=== PATIENT | female | born 1965 | race Caucasian/White ===

== ENCOUNTER → 2017-05-04 | Day surgery (SDC) | payer OTHER ==
[2017-05-03 15:24] VITALS: Ht 157.5 cm; Wt 67.0 kg
[~2017-05-04] VITALS: Ht 157.5 cm; Wt 67.0 kg
[~2017-05-04] MED LIST: CEFAZOLIN 2 GM/50 ML (PMX) 50 ML IVPB ONE; SOD CHLORIDE 0.9% 1,000 ML IV SCH
== END | disposition home or self-care (01) ==
LOC: SDS 07:09
PROVIDERS: ATTEND Surgery Surgical Oncology
DX: C50.912 Malignant neoplasm of unspecified site of left female breast (principal); Z53.9 Procedure and treatment not carried out, unspecified reason

== ENCOUNTER 2017-06-13 09:30 | Inpatient (IN) | payer OTHER ==
[2017-06-13] VITALS (25 sets, daily range): BP systolic 105–135; BP diastolic 67–96; PULSE 92–111; RESP 12–19; Ht 157.5 cm; Wt 67.6 kg
[~2017-06-13] VITALS: Ht 157.5 cm; Wt 67.6 kg
[~2017-06-13 09:30] MED LIST changes: -CEFAZOLIN 2 GM/50 ML (PMX) 50 ML IVPB ONE; +CEFAZOLIN 2 GM/50 ML (PMX) 50 ML IVPB SCH
[2017-06-13] MEDS ORDERED: DILT180C94 PO (10:25)
[2017-06-13] MEDS ORDERED: ALBU18HF INHALATION (10:26)
[2017-06-13] MEDS ORDERED: OMEP20CA16 PO (10:26)
[2017-06-13] MEDS ORDERED: CETI-240 PO (10:26)
[2017-06-13] MEDS ORDERED: FLUT16SP17 NASAL (10:27)
--- NOTE | 2017-06-13 13:44 | HPN ---
Date/Time of Note Date/Time of Note DATE: 06/13/17 TIME: 13:44 Interval H&P Admission Note Pt. seen H&P reviewed: No system changes ANDREINA REGAN MD Jun 13, 2017 13:44
[2017-06-13] MEDS ORDERED: ROCURONIUM 50 MG INJ ONE (13:46)
[2017-06-13] MEDS ORDERED: HYDROmorphONE 2 MG/ML SYG ONE (13:46)
[2017-06-13] MEDS ORDERED: PROPOFOL 20 ML ONE ×2 (13:46→14:44)
[2017-06-13] MEDS ORDERED: MIDAZOLAM 1 MG/ML 2 ML INJ ONE (13:46)
[2017-06-13] MEDS ORDERED: DEXAMETHASONE 4 MG/ML 1 ML INJ ONE (13:46)
[2017-06-13] MEDS ORDERED: ONDANSETRON 4 MG INJ ONE (13:46)
[2017-06-13] MEDS ORDERED: CEFAZOLIN 1 GM INJ ONE (13:57)
[2017-06-13] MEDS ORDERED: BUPIVACAINE LIPOSOME/PF 266 MG/20 ML VIAL INFIL ONE (14:00)
[2017-06-13] MEDS: CEFAZOLIN 2 GM/50 ML (PMX) 50 ML IVPB SCH ×2 (14:00→23:08)
[2017-06-13] MEDS ORDERED: BUPIVACAINE LIPOSOME/PF 266 MG/20 ML VIAL INFIL SCH (14:00)
[2017-06-13] MEDS ORDERED: GENTAMICIN 80 MG INJ ONE ×2 (14:42→17:05)
[2017-06-13] MEDS ORDERED: SODIUM CL BACTERIOSTATIC 30 ML INJ ONE (14:42)
[2017-06-13] MEDS ORDERED: POLYMYXIN/BACITRACIN 1L IRRIG ONE ×2 (14:42→17:04)
[2017-06-13] MEDS ORDERED: METOPROLOL 5 MG INJ ONE (14:44)
[2017-06-13] MEDS ORDERED: HYDROCODONE/APAP (10/325) TAB PO PRN (15:00)
[2017-06-13] MEDS ORDERED: CEFOTAXIME 1 GM/50 ML (PMX) 50 ML IVPB SCH (15:00)
[2017-06-13] MEDS ORDERED: ACETAMINOPHEN 325 MG TAB PO PRN (15:00)
[2017-06-13] MEDS ORDERED: HYDROmorphONE 1 MG/ML SYG IV PRN (15:00)
--- NOTE | 2017-06-13 15:09 | OPR ---
Date/Time of Note Date/Time of Note DATE: 06/13/17 TIME: 15:08 Operative Report Free Text/Dictation Plastic Surgery Operative Report Preoperative diagnosis: left breast DCIS Postoperative diagnosis: same Procedure: bilateral direct to implant reconstruction with alloderm Surgeon: ash Delacruz.:n/a Anesthesia: gen EBL:min IV fluids:per flow sheet Findings: n/a Complications: none Dispo:floor Indications for procedure : 52 yo F patient presents for direct to implant bilateral breast reconstruction. She currently has breast implants. The risks, benefits, and alternatives of performing this procedure were discussed with the patient including the risks of bleeding, infection, wound healing problems, extrusion, pain and tightness, need for removal. We discussed that if radiation is involved, it may alter the outcome. The risk of asymmetry and need for revision surgery were also discussed. The patient states that she understands these risks and would like to proceed with the procedure. All questions were answered, no guarantees were given with regards the outcome of this procedure. Description of procedure: The patient was brought to the operating room at [facility] where general anesthesia was induced, and the patient was prepped and draped in the usual sterile fashion. The bilateral mastectomy was performed by Dr. Mcelroy and will be dictated separately. The breast implants were in the subglandular plane and were removed during the mastectomy. They were 507 cc. At the completion of that portion of the case, I scrubbed into the case, and irrigated the breasts with extensive antibiotic irrigation to remove all loose fat particles. Next, meticulous hemostasis was achieved with the bipolar cautery. An additional round of irrigation and hemostasis was carried out. Next, the right breast was inspected, and a piece of AlloDerm, contour large was opened, rinsed in normal saline, it was anchored in place medially, inferiorly, and laterally to re-create the border of the breasts. This was anchored with 2-0 Vicryl suture. The electrocautery was then used to elevate the pectoralis muscle and created a pocket in the subpectoral plane. Once this was completed, the breast was irrigated antibiotic irrigation, hemostasis was achieved with electrocautery, and then a 5 6 0 cc sizer was opened, rinsed in antibiotic irrigation, and was inserted into the breast. This gave the desired appearance of the breast which was to be smaller, but still full and projecting. The lateral border of the AlloDerm was tacked to the pectoralis muscle laterally. The sizer was then removed. Attention was then turned to the contralateral side where a similar procedure was carried out. A piece of AlloDerm contour large was opened, rinsed in normal saline, it was anchored in place medially, inferiorly, and laterally to re-create the border of the breast. This was anchored with 2-0 Vicryl suture. The electrocautery was then used to elevate the pectoralis muscle and created a pocket in the subpectoral plane. Once this was completed, the breast was irrigated antibiotic irrigation, hemostasis was achieved with electrocautery, and then a 560 cc sizer was inserted into the breast. The breast was symmetric to the contralateral side. The AlloDerm was tacked to the lateral pectoralis muscle. The sizer was then removed. The breasts were irrigated with antibiotic irrigation, hemostasis was achieved with electrocautery, 60 cc of a diluted Exparel solution were injected into the breasts, and then gloves were changed. An DeliveryEdge SCF style 5 6 0 cc implant serial #[id number] was opened, rinsed in antibiotic irrigation, and was inserted into the left breast with minimal touch technique. The superior border of the AlloDerm was then sutured to the pectoralis muscle with 2-0 Vicryl suture. The same size and style implant serial #[id number] was opened, rinsed in antibiotic irrigation, and was inserted into the right breast with minimal touch technique. The superior border of the AlloDerm was then sutured to the pectoralis muscle with 2-0 Vicryl suture. The breasts were towel clipped closed, and the patient was sat up on the operating room table. The breasts were symmetric and had achieve the desired appearance. Therefore, the patient was sat back down, the towel clips were removed, hemostasis was achieved with electrocautery, the breasts are irrigated with antibiotic irrigation once again, and then to 15 Anastacio drains were inserted through stab incisions laterally into each breast and were secured with 2-0 nylon suture. Finally, the breasts were closed with 3-0 Vicryl suture and then 4-0 Monocryl suture. The patient tolerated procedure well, there were no complications, she will remain overnight ANDREINA REGAN MD Jun 13, 2017 15:09 ANDREINA REGAN MD Jun 13, 2017 15:09
[2017-06-13] MEDS ORDERED: EPHEDrine SULFATE 50 MG/5 ML SYG ONE (15:54)
[2017-06-13] MEDS ORDERED: NEOSTIGMINE 3 MG/3 ML SYRINGE ONE (17:19)
[2017-06-13] MEDS ORDERED: GLYCOPYRROLATE 0.4 MG INJ ONE (17:19)
[2017-06-13] MEDS ORDERED: DIPHENHYDRAMINE 50 MG INJ IV PRN (17:30)
[2017-06-13] MEDS ORDERED: LABETALOL HCL 20MG INJ IV PRN (17:30)
[2017-06-13] MEDS ORDERED: HYDROmorphONE (0.2 MG/ML) 10ML SYG IV PRN ×2 (17:30)
[2017-06-13] MEDS ORDERED: MEPERIDINE 25 MG INJ IV PRN (17:30)
[2017-06-13] MEDS ORDERED: ONDANSETRON 4 MG INJ IV PRN (17:30)
[2017-06-13] MEDS ORDERED: hydrALAzine 20 MG INJ IV PRN (17:30)
[2017-06-13] MEDS: ONDANSETRON 4 MG INJ IV PRN ×2 (18:57→21:45)
[2017-06-13] MEDS: HYDROmorphONE (0.2 MG/ML) 10ML SYG IV PRN ×2 (18:59→19:25)
--- NOTE | 2017-06-13 19:04 | OPR ---
DATE OF OPERATION: 06/13/2017 PREOPERATIVE DIAGNOSES: Ductal carcinoma in situ, left breast. Need for left mastectomy and immediate reconstruction, and elective right mastectomy and immediate reconstruction. ANESTHESIA: General. ANESTHESIOLOGIST: Dr. Boyd. SURGEONS: Dr. Ayad Mcelroy and Dr. Samuel Gorman. EXHIBITIONS AND COLLECTIONS MANAGER: Dr. Morgan Garza. INDICATIONS FOR PROCEDURE: Patient is a 52-year-old female, who underwent surveillance mammography. She was found to have suspicious microcalcifications in the left breast. Core biopsy confirmed ductal carcinoma in situ. The patient requested a referral to a plastic surgeon and she did not wish to undergo radiation and wanted to have her previously placed implants replaced. She was referred to attending plastic surgeon, Dr. Samuel Gorman who counseled as to the benefit of bilateral mastectomy with immediate reconstruction. She consented and was scheduled for surgery. POSTOPERATIVE DIAGNOSES: 1. Left modified radical mastectomy with axillary sampling. 2. Right simple mastectomy. 3. 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 OPERATIVE PROCEDURE: The patient was brought to the operating theater, placed under general anesthesia. The previously demarcated elliptical incision on the left breast was incised with 15 blade scalpel. Subcutaneous tissue was dissected with cautery. The skin edges were then elevated with [place] clamps and skin flaps were created sequentially using cautery, first superiorly to the clavicle, then medially to the sternal border, inferiorly to the inframammary fold and laterally to latissimus dorsi muscle was identified throughout its course. Mastectomy then took place from medial to lateral using cautery. At the border of the pectoralis major muscle the pectoralis minor muscle was identified. The implant was found to be subglandular and therefore it was removed as the mastectomy took place. There was 2 somewhat enlarged lymph nodes in the left axilla. Due to the possibility of invasive component of the cancer these lymph nodes were resected, 1 of them was evaluated intraoperatively by attending pathologist, Dr. Nik Brock who stated there was no definite evidence of cancer. Therefore, no further lymph nodes were taken. Specimen was transected, sent for permanent pathologic analysis. The wound was irrigated. Minimal bleeding was controlled with cautery and the wound was then packed with warm saline-soaked gauze. Attention was then directed to the right side. Again the previously demarcated elliptical incision was carried out with 15 blade scalpel. Subcutaneous tissue was dissected with cautery. The skin edges were elevated with [place] clamps. Skin flaps were created with cautery in sequential fashion. First superiorly to the clavicle, then medially to the sternal border, inferiorly to the inframammary fold and laterally to latissimus dorsi muscle was identified throughout its course. Mastectomy then took place from medial lateral using cautery at the border of the pectoralis major muscle. The pectoralis minor muscle was identified. The tail of the axilla was then transected with the LigaSure device. The breast and the enclosed implant was then sent for permanent pathologic analysis. The wound was irrigated. Minimal bleeding was controlled with cautery and the wound was packed with warm saline soaked lap pads. At this point, Dr. Samuel Gorman entered the room and took over control of the operation, proceeded with bilateral implant reconstruction. He will dictate that portion of the operation separately. ESTIMATED BLOOD LOSS: For Dr. Mcelroy' portion of the operation was approximately 200 cc. Dictated By: Ayda Mcelroy MD /lamin/nimo /Document#: [id number]
[2017-06-13] MEDS: LACTATED RINGER'S 1,000 ML IV SCH (19:35)
[2017-06-14] MEDS: LACTATED RINGER'S 1,000 ML IV SCH ×3 (00:50→10:50)
[2017-06-14] MEDS: ONDANSETRON 4 MG INJ IV PRN ×3 (03:28→22:33)
[2017-06-14] MEDS: CEFAZOLIN 2 GM/50 ML (PMX) 50 ML IVPB SCH (06:00)
--- NOTE | 2017-06-14 06:48 | PN ---
Date/Time of Note Date/Time of Note DATE: 06/14/17 TIME: 06:46 Assessment/Plan Lines/Catheters IV Catheter Type (from Nrsg): Peripheral IV Assessment/Plan Assessment/Plan POD 1 s/p drew mastectomy and implant recon, doing well continue to monitor. needs to ambulate more. may go home this afternoon if nausea improves Subjective 24 Hr Interval Summary no acute events overnight. patient having some nausea, pain Exam/Review of Systems Vital Signs Vitals Vital Signs Date Time Temp Pulse Resp B/P Pulse Ox O2 Delivery O2 Flow Rate FiO2 06/13/17 23:55 98.5 112 19 132/91 98 06/13/17 23:00 Nasal Cannula 2.0 Intake and Output 06/13/17 06/13/17 06/14/17 15:00 23:00 07:00 Intake Total 2300 ml 150 ml Output Total 225 ml 540 ml Balance 2300 ml -225 ml -390 ml Exam Free Text/Dictation breast incisions intact, no erythema. no hematoma. flaps appear viable ANDREINA REGAN MD Jun 14, 2017 06:48
[2017-06-14 07:35] VITALS: BP 125/84; RESP 18
[2017-06-14] MEDS ORDERED: SOD CHLORIDE 0.9% 1,000 ML IV ONE (13:00)
[2017-06-14 14:28] VITALS: BP 135/87; RESP 18
[2017-06-14] MEDS: D5W-0.45 NACL + KCL 20 MEQ 1,000 ML IV SCH (16:30)
[2017-06-14] MEDS: KETOROLAC 30 MG INJ IV PRN ×2 (16:31→22:32)
[2017-06-14] MEDS: ALBUTEROL 18 GM INHALER INH SCH (18:30)
[2017-06-14 20:22] VITALS: BP 148/89; RESP 20
[2017-06-15 00:18] VITALS: BP 127/79; RESP 18
[2017-06-15] MEDS: D5W-0.45 NACL + KCL 20 MEQ 1,000 ML IV SCH ×2 (02:53→11:41)
[2017-06-15] MEDS: ONDANSETRON 4 MG INJ IV PRN ×2 (04:47→11:39)
[2017-06-15] MEDS: KETOROLAC 30 MG INJ IV PRN ×2 (04:48→12:31)
[2017-06-15 05:08] LABS: BASOPHILS % 0.4 % (0.0-2.0); EOSINOPHILS % 0.4 % (0.0-7.0); HEMATOCRIT 37.2 % (37.0-47.0); HEMOGLOBIN 12.5 g/dl (12.0-16.0); LYMPHOCYTES % 41.1 % (15.0-51.0); MEAN CORPUSCULAR HEMOGLOBIN 31.2 pg (29.0-33.0); MEAN CORPUSCULAR HGB CONC 33.6 g/dl (32.0-37.0); MEAN CORPUSCULAR VOLUME 92.8 fl (82.0-101.0); MEAN PLATELET VOLUME 10.1 fl (7.4-10.4); MONOCYTE # 0.5 10^3/ul (0.3-0.9); MONOCYTES % 6.4 % (0.0-11.0); NEUTROPHILS % 51.6 % (39.0-77.0); PLATELET COUNT 168 10^3/UL (140-415); RED BLOOD COUNT 4.01 10^6/ul (4.20-5.40); RED CELL DISTRIBUTION WIDTH 12.5 % (11.5-14.5); WHITE BLOOD COUNT 7.2 10^3/ul (4.8-10.8)
[2017-06-15] MEDS ORDERED: PANTOPRAZOLE 40 MG INJ IV SCH (06:00)
[2017-06-15] MEDS: ALBUTEROL 18 GM INHALER INH SCH ×4 (06:00→18:00)
[2017-06-15] MEDS ORDERED: DILTIAZEM (CD) 180 MG CAP PO SCH ×2 (06:01→09:00)
[2017-06-15 06:05] LABS: CALCIUM 8.2 mg/dl (8.4-10.2); CREATININE 0.46 mg/dl (0.44-1.00); POTASSIUM 3.3 mmol/L (3.5-5.1)
[2017-06-15] MEDS: CEFAZOLIN 1 GM/50 ML (PMX) 50 ML IVPB SCH ×2 (06:08→13:44)
[2017-06-15] MEDS: DIPHENHYDRAMINE 50 MG INJ IV PRN ×2 (06:42→14:54)
[2017-06-15 08:13] VITALS: BP 128/79; RESP 15
[2017-06-15] MEDS ORDERED: FLUTICASONE 0.05% 16 GM NAS SPRAY NASAL SCH (09:00)
[2017-06-15 14:00] VITALS: BP 112/75; RESP 15
[2017-06-15] MEDS ORDERED: DOCU-144 PO (17:39)
--- NOTE | 2017-06-15 17:44 | DS ---
Date/Time of Note Date/Time of Note DATE: 06/15/17 TIME: 17:44 Discharge Summary Admission/Discharge Info Admit Date/Time Jun 13, 2017 at 09:30 Discharge Date/Time Home Meds Active Scripts Docusate Sodium* (Colace*) 100 Mg Capsule, 100 MG PO DAILY, #30 CAP Prov:FLORENTIN HENDRICKSON 06/15/17 Reported Medications Fluticasone Propionate* (Fluticasone Propionate* Nasal) 50 Mcg/Doyline - 16 Gm Doyline.susp, 2 SPRAYS NASAL DAILY, #1 BOTTLE TO EACH NOSTRIL 06/13/17 Omeprazole* (Omeprazole*) 20 Mg Capsule.dr, 20 MG PO DAILY, #30 CAP 06/13/17 Cetirizine Hcl* (Cetirizine Hcl*) 10 Mg Tablet, 10 MG PO DAILY, #30 TAB 06/13/17 Albuterol Sulfate* (Ventolin HFA*) 18 Gm Hfa.aer.ad, 2 PUFF INHALATION Q6H, #1 INHALER 06/13/17 Diltiazem Hcl* (Diltiazem XT) 180 Mg Capsule.er, 180 MG PO DAILY, #30 CAP 06/13/17 Primary Care Provider Not On Staff Doctor Pending Labs Laboratory Tests Test 06/15/17 04:37 White Blood Count 7.210^3/ul (4.8-10.8) Red Blood Count 4.0110^6/ul (4.20-5.40) Hemoglobin 12.5g/dl (12.0-16.0) Hematocrit 37.2% (37.0-47.0) Mean Corpuscular Volume 92.8fl (82.0-101.0) Mean Corpuscular Hemoglobin 31.2pg (29.0-33.0) Mean Corpuscular Hemoglobin Concent 33.6g/dl (32.0-37.0) Red Cell Distribution Width 12.5% (11.5-14.5) Platelet Count 35193^3/UL (140-415) Mean Platelet Volume 10.1fl (7.4-10.4) Neutrophils % 51.6% (39.0-77.0) Lymphocytes % 41.1% (15.0-51.0) Monocytes % 6.4% (0.0-11.0) Eosinophils % 0.4% (0.0-7.0) Basophils % 0.4% (0.0-2.0) Nucleated Red Blood Cells % 0.0/100WBC (0.0-0.0) Neutrophils # (Manual) 3.710^3/ul (1.7-7.5) Lymphocytes # 3.010^3/ul (0.8-2.9) Monocytes # 0.510^3/ul (0.3-0.9) Eosinophils # 0.010^3/ul (0.0-0.5) Basophils # 0.010^3/ul (0.0-0.1) Nucleated Red Blood Cells # 0.010^3/ul (0.0-0.0) Sodium Level 139mmol/L (135-144) Potassium Level 3.3mmol/L (3.5-5.1) Chloride Level 107mmol/L (97-110) Carbon Dioxide Level 27mmol/L (21-31) Anion Gap 8 (8-16) Blood Urea Nitrogen 4mg/dl (7-20) Creatinine 0.46mg/dl (0.44-1.00) Glucose Level 101mg/dl (70-220) Calcium Level 8.2mg/dl (8.4-10.2) FLORENTIN HENDRICKSON Jun 15, 2017 17:44
[2017-06-16] MEDS ORDERED: FAMOTIDINE 20 MG INJ IV SCH (09:00)
== END 2017-06-15 18:35 | disposition home or self-care (01) | DRG 581 ==
LOC: REC 09:30 → EDSTATUS 14:00 → MS1 20:13
PROVIDERS: ADMIT Surgery Surgical Oncology; ATTEND Surgery Surgical Oncology
PROC: 0KBH0ZZ Excision of Right Thorax Muscle, Open Approach (ICD-10-PCS; 2017-06-13)
PROC: 07B60ZX Excision of Left Axillary Lymphatic, Open Approach, Diagnostic (ICD-10-PCS; 2017-06-13)
PROC: 0HUV0KZ Supplement Bilateral Breast with Nonautologous Tissue Substitute, Open Approach (ICD-10-PCS; 2017-06-13)
PROC: 0HRV0JZ Replacement of Bilateral Breast with Synthetic Substitute, Open Approach (ICD-10-PCS; 2017-06-13)
PROC: 0HTV0ZZ Resection of Bilateral Breast, Open Approach (ICD-10-PCS; principal; 2017-06-13 13:00)
PROC: 0KBJ0ZZ Excision of Left Thorax Muscle, Open Approach (ICD-10-PCS; 2017-06-13 13:00)
DX: D05.12 Intraductal carcinoma in situ of left breast (principal); I10 Essential (primary) hypertension; E03.9 Hypothyroidism, unspecified; K21.9 Gastro-esophageal reflux disease without esophagitis; J45.909 Unspecified asthma, uncomplicated; Z90.710 Acquired absence of both cervix and uterus; Z98.82 Breast implant status
CPT/HCPCS: 80048; 84703; 85025; 88307; C1762; C1789; C9113; C9290; J0690; J1100; J1170; J1200; J1580; J1885; J2175; J2250; J2405; J2710; J3480; J7030; J7120

== ENCOUNTER 2017-06-17 11:05 | Inpatient (IN) | payer OTHER ==
[~2017-06-17] VITALS: Ht 157.5 cm; Wt 68.0 kg
[~2017-06-17 11:05] MED LIST changes: +ALBU18HF INHALATION; -CEFAZOLIN 2 GM/50 ML (PMX) 50 ML IVPB SCH; +CETI-240 PO; +DILT180C94 PO; +DOCU-144 PO; +FLUT16SP17 NASAL; +OMEP20CA16 PO; -SOD CHLORIDE 0.9% 1,000 ML IV SCH
[2017-06-17 12:40] VITALS: Ht 157.5 cm; Wt 68.0 kg
[2017-06-17] MEDS ORDERED: NA PHOSPHATE/BIPHOS 133 ML ENEMA PR ONE (13:00)
[2017-06-17] MEDS ORDERED: ONDANSETRON 4 MG INJ IV PRN (13:00)
[2017-06-17] MEDS ORDERED: ACETAMINOPHEN 1000MG/100ML IV 100 ML IVPB PRN (13:00)
[2017-06-17 13:01] VITALS: BP 170/90; PULSE 110; RESP 16
[2017-06-17] MEDS: DEXTROSE 5%-0.45% NACL 1,000 ML IV SCH (13:03)
[2017-06-17] MEDS: CEPHALEXIN 500 MG CAP PO SCH ×2 (14:00→22:32)
--- NOTE | 2017-06-17 15:28 | HP ---
Date/Time of Note Date/Time of Note DATE: 06/17/17 TIME: 15:04 Assessment/Plan VTE Prophylaxis VTE Prophylaxis Intervention: SCD's Lines/Catheters IV Catheter Type (from Nrsg): Saline Lock Urinary Cath still in place: No Assessment/Plan Assessment/Plan -SP bilateral mastectomy - Intractable abdominal pain sec to fecal impaction- sp enema. - per surgery - clear liquid diet - intractable nausea/vomitting sec to above - GI consult- Dr Lanier notified - SEVERE CONSTIPATION- resolved- had BM X5, feels better. - per GI Dw Dr Bah HPI/ROS Admit Date/Time Admit Date/Time Jun 17, 2017 at 12:15 Hx of Present Illness This 52 years old female , sp bilateral mastectomy on is admired with abdominal pain and vomitting. Patient was seen at [facility] and is transferred to [facility]. Patient is admited under Dr Bah for further evaluation ROS Respiratory: no complaints Cardiovascular: no complaints Gastrointestinal: nausea, pain, vomiting Musculoskeletal: no complaints Skin: no complaints Neurologic: no complaints PMH/Family/Social Past Surgical History sp mastectomy Social History Smoking Status: Never smoker Exam/Review of Systems Vital Signs Vitals Vital Signs Date Time Temp Pulse Resp B/P Pulse Ox O2 Delivery O2 Flow Rate FiO2 06/17/17 13:01 98.0 110 16 170/90 99 Room Air Exam Constitutional: alert, well developed Respiratory: clear to auscultation, normal air movement Cardiovascular: nl pulses, regular rate and rhythm Gastrointestinal: distended, tender Musculoskeletal: nl extremities to inspection Extremities: normal pulses Neurological: nl mental status, nl speech Medications Medications Current Medications Dextrose/Sodium Chloride (D5-1/2ns) 1,000 ml @ 75 mls/hr [id number] IV Last administered on 06/17/17t 13:03; Admin Dose 75 MLS/HR; Start 06/17/17 at 13:00 Ondansetron HCl 4 mg 4 mg Q4H PRN IV NAUSEA AND/OR VOMITING; Start 06/17/17 at 13:00 Acetaminophen (Ofirmev 1000mg/ 100ml Iv) 100 ml @ 400 mls/hr Q6H PRN IVPB FEVER GREATER THAN 100.6; Start 06/17/17 at 13:00 Cephalexin (Keflex) 500 mg Q8 PO ; Start 06/17/17 at 14:00 Diltiazem HCl (Cardizem Cd) 180 mg DAILY PO ; Start 06/18/17 at 09:[address] ABDOMEN- FLORENTIN HENDRICKSON Jun 17, 2017 15:14
[2017-06-17] MEDS ORDERED: BISACODYL (EC) 5 MG TAB PO PRN (15:30)
[2017-06-17 16:00] VITALS: BP 160/92
--- NOTE | 2017-06-17 19:03 | CONS ---
DATE OF ADMISSION: 06/17/2017 DATE OF CONSULTATION: 06/17/2017 HISTORY OF PRESENT ILLNESS: The patient is a 52-year-old female who underwent bilateral mastectomy at this facility on 06/14/2017. Also had a reconstructive surgery for both the breasts with implant, but developed abdominal pain, went to the emergency room at [facility] and had a CAT scan done which showed severe constipation and no acute other pathology was identified. The patient was subsequently transferred to this facility for insurance purposes. No nausea, no vomiting. She was given enema on the floor and had a good bowel movement but continues to have abdominal pain. No fever, no chills. No chest pain. No shortness of breath. PAST MEDICAL HISTORY: Bronchial asthma, hypertension, and bilateral breast implants. SOCIAL HISTORY: Does not smoke or drink. FAMILY HISTORY: Nothing contributory. REVIEW OF SYSTEMS: As described. PHYSICAL EXAMINATION: GENERAL APPEARANCE: Alert, awake, in mild distress secondary to the pain. HEENT: Unremarkable. NECK: Supple. No thyromegaly. No lymphadenopathy. HEART: No murmur, gallop or click. LUNGS: Clear. ABDOMEN: Benign. EXTREMITIES: No edema. NEUROLOGIC: Grossly within normal limits TREATMENT: The patient was evaluated by the surgeon who ordered mineral oil orally for constipation. IMPRESSION: 1. Severe constipation probably the cause of pain. 2. Bilateral mastectomy with reconstructive surgery and breast implant. 3. Hypertension. 4. Bronchial asthma. PLAN: Start the patient on Amitiza 24 mcg b.i.d. Once there is a good bowel movement will cut off her mineral oil which is not palatable and will follow. Dictated By: Hugh Lanier MD /lamin/bob /Document#: [id number] CC: Chase Bah MD;*End*
[2017-06-17 19:30] VITALS: BP 170/95; PULSE 74; RESP 14
[2017-06-17 19:40] VITALS: BP_SYST 134; BP_SYST 170; BP_DIAS 86; BP_DIAS 94; RESP 18
[2017-06-17] MEDS: ALBUTEROL 18 GM INHALER INH SCH (20:00)
[2017-06-17] MEDS ORDERED: hydrALAzine 20 MG INJ IV PRN (20:30)
[2017-06-17] MEDS: LUBIPROSTONE 24 MCG CAP PO SCH (21:36)
[2017-06-17] MEDS: MINERAL OIL 30ML CUP PO SCH (22:00)
[2017-06-18] MEDS: DEXTROSE 5%-0.45% NACL 1,000 ML IV SCH ×2 (01:09→14:47)
[2017-06-18] MEDS ORDERED: DIPHENHYDRAMINE 50 MG INJ IV ONE ×2 (01:30→22:30)
[2017-06-18 01:43] VITALS: BP 135/88; RESP 18
[2017-06-18] MEDS: ALBUTEROL 18 GM INHALER INH SCH ×4 (02:00→20:00)
[2017-06-18 05:43] LABS: BASOPHILS % 0.3 % (0.0-2.0); EOSINOPHILS # 0.1 10^3/ul (0.0-0.5); EOSINOPHILS % 1.5 % (0.0-7.0); HEMOGLOBIN 12.8 g/dl (12.0-16.0); LYMPHOCYTES # 2.1 10^3/ul (0.8-2.9); LYMPHOCYTES % 28.2 % (15.0-51.0); MEAN CORPUSCULAR HEMOGLOBIN 31.4 pg (29.0-33.0); MEAN CORPUSCULAR HGB CONC 33.7 g/dl (32.0-37.0); MEAN CORPUSCULAR VOLUME 93.1 fl (82.0-101.0); MEAN PLATELET VOLUME 9.7 fl (7.4-10.4); MONOCYTE # 0.6 10^3/ul (0.3-0.9); MONOCYTES % 8.2 % (0.0-11.0); NEUTROPHILS % 61.5 % (39.0-77.0); PLATELET COUNT 224 10^3/UL (140-415); RED BLOOD COUNT 4.08 10^6/ul (4.20-5.40); RED CELL DISTRIBUTION WIDTH 12.1 % (11.5-14.5); WHITE BLOOD COUNT 7.3 10^3/ul (4.8-10.8)
[2017-06-18] MEDS: PANTOPRAZOLE (EC) 40 MG TAB PO SCH (06:00)
[2017-06-18] MEDS: CEPHALEXIN 500 MG CAP PO SCH ×3 (06:00→21:05)
[2017-06-18] MEDS: MINERAL OIL 30ML CUP PO SCH ×3 (06:00→21:05)
[2017-06-18 06:17] LABS: CREATININE 0.46 mg/dl (0.44-1.00)
[2017-06-18] MEDS: POTASSIUM CHLORIDE (SR) 20 MEQ TAB PO SCH ×2 (07:08→08:58)
[2017-06-18 07:50] VITALS: BP 138/74; RESP 19
[2017-06-18] MEDS: LUBIPROSTONE 24 MCG CAP PO SCH ×2 (08:51→21:04)
[2017-06-18] MEDS: DILTIAZEM (CD) 180 MG CAP PO SCH (08:51)
[2017-06-18] MEDS: DOCUSATE SODIUM 100 MG CAP PO SCH (08:51)
[2017-06-18] MEDS ORDERED: DILTIAZEM (CD) 180 MG CAP PO SCH (09:00)
[2017-06-18] MEDS: FLUTICASONE 0.05% 16 GM NAS SPRAY NASAL SCH (09:00)
[2017-06-18 12:35] LABS: HEMATOCRIT 38.6 % (37.0-47.0); HEMOGLOBIN 13.1 g/dl (12.0-16.0)
--- NOTE | 2017-06-18 13:24 | PN ---
Date/Time of Note Date/Time of Note DATE: 06/18/17 TIME: 13:20 Assessment/Plan VTE Prophylaxis VTE Prophylaxis Intervention: SCD's Lines/Catheters IV Catheter Type (from Nrsg): Peripheral IV Urinary Cath still in place: No Assessment/Plan Assessment/Plan -SP bilateral mastectomy - Intractable abdominal pain sec to fecal impaction- sp enema. - per surgery - clear liquid diet - intractable nausea/vomitting sec to above - GI consult- Dr Lanier notified - SEVERE CONSTIPATION- resolved- had BM X5, feels better. - per GI Dw Dr Bah Exam/Review of Systems Vital Signs Vitals Vital Signs Date Time Temp Pulse Resp B/P Pulse Ox O2 Delivery O2 Flow Rate FiO2 06/18/17 07:50 98.2 71 19 138/74 98 06/17/17 19:30 Room Air Intake and Output 06/17/17 06/17/17 06/18/17 15:00 23:00 07:00 Intake Total 500 ml 980 ml Output Total 350 ml 830 ml Balance 150 ml 150 ml Exam Constitutional: alert, oriented, well developed Psych: nl mood/affect Respiratory: clear to auscultation Cardiovascular: nl pulses, regular rate and rhythm Gastrointestinal: non-tender, soft Musculoskeletal: nl extremities to inspection Extremities: normal pulses Neurological: nl mental status, nl speech Results Result Diagram: 06/18/17 1159 06/18/17 0453 Results 24 hrs Laboratory Tests Test 06/18/17 04:53 06/18/17 11:59 White Blood Count 7.3 Red Blood Count 4.08 L Hemoglobin 12.8 13.1 Hematocrit 38.0 38.6 Mean Corpuscular Volume 93.1 Mean Corpuscular Hemoglobin 31.4 Mean Corpuscular Hemoglobin Concent 33.7 Red Cell Distribution Width 12.1 Platelet Count 224 # Mean Platelet Volume 9.7 Neutrophils % 61.5 Lymphocytes % 28.2 Monocytes % 8.2 Eosinophils % 1.5 Basophils % 0.3 Nucleated Red Blood Cells % 0.0 Neutrophils # (Manual) 4.5 Lymphocytes # 2.1 Monocytes # 0.6 Eosinophils # 0.1 Basophils # 0.0 Nucleated Red Blood Cells # 0.0 Sodium Level 138 Potassium Level 3.0 L Chloride Level 105 Carbon Dioxide Level 28 Anion Gap 8 Blood Urea Nitrogen 5 L Creatinine 0.46 Glucose Level 110 Calcium Level 8.0 L Medications Medications Current Medications Dextrose/Sodium Chloride (D5-1/2ns) 1,000 ml @ 75 mls/hr [id number] IV Last administered on 06/18/17 01:09; Admin Dose 75 MLS/HR; Start 06/17/17 at 13:00 Ondansetron HCl 4 mg 4 mg Q4H PRN IV NAUSEA AND/OR VOMITING; Start 06/17/17 at 13:00 Acetaminophen (Ofirmev 1000mg/ 100ml Iv) 100 ml @ 400 mls/hr Q6H PRN IVPB FEVER GREATER THAN 100.6; Start 06/17/17 at 13:00 Cephalexin (Keflex) 500 mg Q8 PO Last administered on 06/18/17 06:00; Admin Dose 500 MG; Start 06/17/17 at 14:00 Diltiazem HCl (Cardizem Cd) 180 mg DAILY PO Last administered on 06/18/17 08: 51; Admin Dose 180 MG; Start 06/18/17 at 09:00 Mineral Oil (Mineral Oil) 30 ml Q8 PO ; Start 06/17/17 at 22:00 Docusate Sodium (Colace) 100 mg DAILY PO Last administered on 06/18/17 08:51; Admin Dose 100 MG; Start 06/18/17 at 09:00 Fluticasone Propionate (Flonase 0.05% Nasal) 1 spray DAILY NASAL ; Start at 09:00 Pantoprazole (Protonix Tab) 40 mg DAILY@06 PO Last administered on 06/18/17 06 :00; Admin Dose 40 MG; Start 06/18/17 at 06:00 Bisacodyl (Dulcolax) 5 mg DAILY PRN PO CONSTIPATION; Start 06/17/17 at 15:30 Lubiprostone (Amitiza) 24 mcg BID PO Last administered on 06/18/17 08:51; Admin Dose 24 MCG; Start 06/17/17 at 21:00 Hydralazine HCl (Apresoline) 10 mg Q4H PRN IV FOR SBP >160; Start 06/17/17 at 20:30 FLORENTIN HENDRICKSON Jun 18, 2017 13:24
[2017-06-18] MEDS ORDERED: AL HYDROX/MG HYDROX/SIMETH 30 ML CUP PO ONE (13:30)
[2017-06-18] MEDS: KETOROLAC 15 MG INJ IV PRN ×2 (14:57→21:02)
[2017-06-18] MEDS ORDERED: POTASSIUM CHLORIDE 20 MEQ in SOD CHLORIDE 0.9% 100 ML IVPB SCH (15:00)
--- NOTE | 2017-06-18 15:43 | CONS ---
Date/Time of Note Date/Time of Note DATE: 06/18/17 TIME: 15:42 Assessment/Plan Assessment/Plan Additional Assessment/Plan IMPRESSION: 1. Severe constipation probably the cause of pain. 2. Bilateral mastectomy with reconstructive surgery and breast implant. 3. Hypertension. 4. Bronchial asthma. Plan Amitiza Consultation Date/Type/Reason Admit Date/Time Jun 17, 2017 at 12:15 Initial Consult Date 24 HR Interval Summary Constitutional: improved, no complaints Exam/Review of Systems Vital Signs Vitals Vital Signs Date Time Temp Pulse Resp B/P Pulse Ox O2 Delivery O2 Flow Rate FiO2 06/18/17 07:50 98.2 71 19 138/74 98 06/17/17 19:30 Room Air Intake and Output 06/17/17 06/17/17 06/18/17 15:00 23:00 07:00 Intake Total 500 ml 980 ml Output Total 350 ml 830 ml Balance 150 ml 150 ml Exam Constitutional: alert, oriented, well developed Psych: nl mood/affect, no complaints Head: atraumatic, normocephalic Eyes: EOMI, PERRL, nl conjunctiva, nl lids, nl sclera ENMT: nl external ears & nose, nl lips & teeth, nl nasal mucosa & septum Neck: non-tender, supple Respiratory: clear to auscultation, normal air movement Cardiovascular: nl pulses, regular rate and rhythm Gastrointestinal: nl liver, spleen, non-tender, soft Musculoskeletal: nl extremities to inspection, nl gait and stance Extremities: normal pulses Neurological: INSIDE SALES 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 MANAGER II-XII intact, nl mental status, nl speech, nl strength Skin: nl turgor, No rash or lesions Lymph: nl lymph nodes Results Result Diagram: 06/18/17 1159 06/18/17 0453 Results 24 hrs Laboratory Tests Test 06/18/17 04:53 06/18/17 11:59 White Blood Count 7.3 Red Blood Count 4.08 L Hemoglobin 12.8 13.1 Hematocrit 38.0 38.6 Mean Corpuscular Volume 93.1 Mean Corpuscular Hemoglobin 31.4 Mean Corpuscular Hemoglobin Concent 33.7 Red Cell Distribution Width 12.1 Platelet Count 224 # Mean Platelet Volume 9.7 Neutrophils % 61.5 Lymphocytes % 28.2 Monocytes % 8.2 Eosinophils % 1.5 Basophils % 0.3 Nucleated Red Blood Cells % 0.0 Neutrophils # (Manual) 4.5 Lymphocytes # 2.1 Monocytes # 0.6 Eosinophils # 0.1 Basophils # 0.0 Nucleated Red Blood Cells # 0.0 Sodium Level 138 Potassium Level 3.0 L Chloride Level 105 Carbon Dioxide Level 28 Anion Gap 8 Blood Urea Nitrogen 5 L Creatinine 0.46 Glucose Level 110 Calcium Level 8.0 L Medications Medications Current Medications Dextrose/Sodium Chloride (D5-1/2ns) 1,000 ml @ 75 mls/hr [id number] IV Last administered on 06/18/17 14:47; Admin Dose 75 MLS/HR; Start 06/17/17 at 13:00 Ondansetron HCl 4 mg 4 mg Q4H PRN IV NAUSEA AND/OR VOMITING; Start 06/17/17 at 13:00 Acetaminophen (Ofirmev 1000mg/ 100ml Iv) 100 ml @ 400 mls/hr Q6H PRN IVPB FEVER GREATER THAN 100.6; Start 06/17/17 at 13:00 Cephalexin (Keflex) 500 mg Q8 PO Last administered on 06/18/17 14:29; Admin Dose 500 MG; Start 06/17/17 at 14:00 Diltiazem HCl (Cardizem Cd) 180 mg DAILY PO Last administered on 06/18/17 08: 51; Admin Dose 180 MG; Start 06/18/17 at 09:00 Mineral Oil (Mineral Oil) 30 ml Q8 PO Last administered on 06/18/17 14:29; Admin Dose 30 ML; Start 06/17/17 at 22:00 Docusate Sodium (Colace) 100 mg DAILY PO Last administered on 06/18/17 08:51; Admin Dose 100 MG; Start 06/18/17 at 09:00 Fluticasone Propionate (Flonase 0.05% Nasal) 1 spray DAILY NASAL ; Start at 09:00 Pantoprazole (Protonix Tab) 40 mg DAILY@06 PO Last administered on 06/18/17 06 :00; Admin Dose 40 MG; Start 06/18/17 at 06:00 Bisacodyl (Dulcolax) 5 mg DAILY PRN PO CONSTIPATION; Start 06/17/17 at 15:30 Lubiprostone (Amitiza) 24 mcg BID PO Last administered on 06/18/17 08:51; Admin Dose 24 MCG; Start 06/17/17 at 21:00 Hydralazine HCl (Apresoline) 10 mg Q4H PRN IV FOR SBP >160; Start 06/17/17 at 20:30 Ketorolac Tromethamine (Toradol) 15 mg Q6H PRN IV PAIN Last administered on t 14:57; Admin Dose 15 MG; Start 06/18/17 at 13:30; Stop 06/21/17 at 13:29 SKIP ARSHAD MD Jun 18, 2017 15:43
[2017-06-18 18:36] LABS: HEMATOCRIT 39.2 % (37.0-47.0); HEMOGLOBIN 12.8 g/dl (12.0-16.0)
[2017-06-18 19:58] VITALS: BP 112/76; RESP 18
[2017-06-18] MEDS ORDERED: DIPHENHYDRAMINE 50 MG INJ ONE (22:28)
[2017-06-19 00:49] LABS: HEMATOCRIT 35.1 % (37.0-47.0); HEMOGLOBIN 11.9 g/dl (12.0-16.0)
[2017-06-19 01:47] VITALS: BP 94/57; RESP 18
[2017-06-19] MEDS: ALBUTEROL 18 GM INHALER INH SCH ×4 (02:00→20:00)
[2017-06-19] MEDS: PANTOPRAZOLE (EC) 40 MG TAB PO SCH (05:03)
[2017-06-19] MEDS: CEPHALEXIN 500 MG CAP PO SCH ×2 (05:03→13:04)
[2017-06-19] MEDS: MINERAL OIL 30ML CUP PO SCH ×3 (05:03→20:19)
[2017-06-19] MEDS: DEXTROSE 5%-0.45% NACL 1,000 ML IV SCH ×2 (05:03→18:59)
[2017-06-19 05:48] LABS: BASOPHILS % 0.3 % (0.0-2.0); EOSINOPHILS # 0.2 10^3/ul (0.0-0.5); EOSINOPHILS % 2.8 % (0.0-7.0); HEMATOCRIT 36.9 % (37.0-47.0); LYMPHOCYTES # 2.3 10^3/ul (0.8-2.9); LYMPHOCYTES % 29.7 % (15.0-51.0); MEAN CORPUSCULAR HEMOGLOBIN 30.6 pg (29.0-33.0); MEAN CORPUSCULAR HGB CONC 32.5 g/dl (32.0-37.0); MEAN CORPUSCULAR VOLUME 94.1 fl (82.0-101.0); MEAN PLATELET VOLUME 9.8 fl (7.4-10.4); MONOCYTE # 0.7 10^3/ul (0.3-0.9); MONOCYTES % 9.3 % (0.0-11.0); NEUTROPHILS % 57.5 % (39.0-77.0); PLATELET COUNT 215 10^3/UL (140-415); RED BLOOD COUNT 3.92 10^6/ul (4.20-5.40); RED CELL DISTRIBUTION WIDTH 12.4 % (11.5-14.5); WHITE BLOOD COUNT 7.9 10^3/ul (4.8-10.8)
[2017-06-19 05:52] LABS: CALCIUM 8.1 mg/dl (8.4-10.2); CREATININE 0.51 mg/dl (0.44-1.00); POTASSIUM 3.5 mmol/L (3.5-5.1)
[2017-06-19 08:03] VITALS: BP 114/79; RESP 18
[2017-06-19] MEDS: FLUTICASONE 0.05% 16 GM NAS SPRAY NASAL SCH (08:27)
[2017-06-19] MEDS: LUBIPROSTONE 24 MCG CAP PO SCH ×2 (08:38→20:19)
[2017-06-19] MEDS: KETOROLAC 15 MG INJ IV PRN ×2 (08:38→19:03)
[2017-06-19] MEDS: DILTIAZEM (CD) 180 MG CAP PO SCH (08:38)
[2017-06-19] MEDS: DOCUSATE SODIUM 100 MG CAP PO SCH (08:38)
[2017-06-19 12:27] LABS: HEMATOCRIT 36.9 % (37.0-47.0); HEMOGLOBIN 12.2 g/dl (12.0-16.0)
[2017-06-19 14:00] VITALS: BP 115/77; RESP 18
[2017-06-19 17:57] LABS: HEMATOCRIT 34.8 % (37.0-47.0); HEMOGLOBIN 11.7 g/dl (12.0-16.0)
[2017-06-19 20:10] VITALS: BP 121/79; RESP 18
[2017-06-20] MEDS: ALBUTEROL 18 GM INHALER INH SCH ×3 (01:10→14:00)
[2017-06-20 01:37] VITALS: BP 104/77; RESP 18
[2017-06-20] MEDS: KETOROLAC 15 MG INJ IV PRN ×3 (04:37→18:24)
[2017-06-20] MEDS: PANTOPRAZOLE (EC) 40 MG TAB PO SCH (04:39)
--- NOTE | 2017-06-20 05:25 | CONS ---
DATE OF ADMISSION: 06/17/2017 DATE OF CONSULTATION: 06/20/2017 HISTORY OF PRESENT ILLNESS: This is a 52-year-old female, admitted for abdominal pain, severe constipation, nausea, and vomiting. The patient was successfully treated with Amitiza, and now she has a good bowel movement. Her abdominal pain has reduced to minimal. She is just nauseous. OBJECTIVE: VITAL SIGNS: Stable. ABDOMEN: Benign. LUNGS: Clear. EXTREMITIES: No edema. NEUROLOGIC: Grossly within normal limit. IMPRESSION: 1. Severe constipation, much better. 2. Abdominal pain, reduced to minimal. 3. Bilateral mastectomy with reconstructive surgery and breast implant. 4. Hypertension. 5. Bronchial asthma. PLAN: To continue with Amitiza. We will start the patient on PPI for her nausea. Dictated By: Hugh Lanier MD /lamin/kalani /Document#: [id number]
[2017-06-20] MEDS: MINERAL OIL 30ML CUP PO SCH ×2 (06:01→13:13)
[2017-06-20 08:27] VITALS: BP 127/84; RESP 14
[2017-06-20] MEDS: DILTIAZEM (CD) 180 MG CAP PO SCH (08:36)
[2017-06-20] MEDS: LUBIPROSTONE 24 MCG CAP PO SCH (08:36)
[2017-06-20] MEDS: DEXTROSE 5%-0.45% NACL 1,000 ML IV SCH (08:37)
[2017-06-20] MEDS: DOCUSATE SODIUM 100 MG CAP PO SCH (08:37)
[2017-06-20] MEDS: FLUTICASONE 0.05% 16 GM NAS SPRAY NASAL SCH (09:00)
[2017-06-20] MEDS ORDERED: DIAZEPAM 5 MG TAB PO PRN (13:00)
[2017-06-20 13:55] VITALS: BP 134/86; RESP 16
--- NOTE | 2017-06-20 17:11 | PN ---
Date/Time of Note Date/Time of Note DATE: 06/20/17 TIME: 17:09 Assessment/Plan VTE Prophylaxis VTE Prophylaxis Intervention: other Lines/Catheters IV Catheter Type (from Nrs): Saline Lock Urinary Cath still in place: No Assessment/Plan Assessment/Plan - Intractable abdominal pain sec to fecal impaction- patient has a Large BM today, feels beter - per surgery - clear liquid diet - intractable nausea/vomitting sec to above - GI consult- Dr Lanier notified - SEVERE CONSTIPATION- resolved- had BM X5, feels better. - per GI -SP bilateral mastectomy Dw Dr Bah Subjective 24 Hr Interval Summary Free Text/Dictation Late Entry for 06/19/2017 Respiratory: no complaints Cardiovascular: no complaints Gastrointestinal: constipation, pain Genitourinary: no complaints Exam/Review of Systems Vital Signs Vitals Vital Signs Date Time Temp Pulse Resp B/P Pulse Ox O2 Delivery O2 Flow Rate FiO2 06/20/17 13:55 99.4 99 16 134/86 97 06/17/17 19:30 Room Air Intake and Output 06/19/17 06/19/17 06/20/17 15:00 23:00 07:00 Intake Total 240 ml 1600 ml 1450 ml Output Total 22 ml Balance 240 ml 1600 ml 1428 ml Exam Constitutional: alert, oriented, well developed Respiratory: clear to auscultation, normal air movement Cardiovascular: nl pulses, regular rate and rhythm Gastrointestinal: non-tender, soft Musculoskeletal: nl extremities to inspection Extremities: normal pulses Neurological: nl mental status Results Result Diagram: 06/19/17 1735 06/19/17 0451 Results 24 hrs Laboratory Tests Test 06/19/17 17:35 Hemoglobin 11.7 L Hematocrit 34.8 L Medications Medications Current Medications Dextrose/Sodium Chloride (D5-1/2ns) 1,000 ml @ 75 mls/hr [id number] IV Last administered on 06/20/17t 08:37; Admin Dose 75 MLS/HR; Start 06/17/17 at 13:00 Ondansetron HCl 4 mg 4 mg Q4H PRN IV NAUSEA AND/OR VOMITING; Start 06/17/17 at 13:00 Acetaminophen (Ofirmev 1000mg/ 100ml Iv) 100 ml @ 400 mls/hr Q6H PRN IVPB FEVER GREATER THAN 100.6; Start 06/17/17 at 13:00 Diltiazem HCl (Cardizem Cd) 180 mg DAILY PO Last administered on 06/20/17 08: 36; Admin Dose 180 MG; Start 06/18/17 at 09:00 Mineral Oil (Mineral Oil) 30 ml Q8 PO Last administered on 06/20/17 13:13; Admin Dose 30 ML; Start 06/17/17 at 22:00 Docusate Sodium (Colace) 100 mg DAILY PO Last administered on 06/20/17 08:37; Admin Dose 100 MG; Start 06/18/17 at 09:00 Fluticasone Propionate (Flonase 0.05% Nasal) 1 spray DAILY NASAL ; Start at 09:00 Pantoprazole (Protonix Tab) 40 mg DAILY@06 PO Last administered on 06/20/17 04 :39; Admin Dose 40 MG; Start 06/18/17 at 06:00 Bisacodyl (Dulcolax) 5 mg DAILY PRN PO CONSTIPATION Last administered on 12:55; Admin Dose 5 MG; Start 06/17/17 at 15:30 Lubiprostone (Amitiza) 24 mcg BID PO Last administered on 06/20/17 08:36; Admin Dose 24 MCG; Start 06/17/17 at 21:00 Hydralazine HCl (Apresoline) 10 mg Q4H PRN IV FOR SBP >160; Start 06/17/17 at 20:30 Ketorolac Tromethamine (Toradol) 15 mg Q6H PRN IV PAIN Last administered on 11:52; Admin Dose 15 MG; Start 06/18/17 at 13:30; Stop 06/21/17 at 13:29 Diphenhydramine HCl (Benadryl) 25 mg HS PO Last administered on 06/19/17 23:05 ; Admin Dose 25 MG; Start 06/20/17 at 21:00 Diazepam (Valium) 5 mg Q12H PRN PO ANXIETY Last administered on 06/20/17 13:13 ; Admin Dose 5 MG; Start 06/20/17 at 13:00 FLORENTIN HENDRICKSON Jun 20, 2017 17:11
--- NOTE | 2017-06-20 17:14 | PN ---
Date/Time of Note Date/Time of Note DATE: 06/20/17 TIME: 17:12 Assessment/Plan VTE Prophylaxis VTE Prophylaxis Intervention: other Lines/Catheters IV Catheter Type (from Nrs): Saline Lock Urinary Cath still in place: No Assessment/Plan Assessment/Plan - Intractable abdominal pain sec to fecal impaction- resolving patient has a Large BM today, feels beter - per surgery - clear liquid diet - intractable nausea/vomitting sec to above - GI consult- Dr Lanier notified - SEVERE CONSTIPATION- resolved- had BM X5, feels better. - per GI -SP bilateral mastectomy Dw Dr Bah Subjective 24 Hr Interval Summary Free Text/Dictation Patient is up in chair, had large BM today, feels better, wants to go home,dw staFF Respiratory: no complaints Cardiovascular: no complaints Gastrointestinal: no complaints Skin: no complaints Exam/Review of Systems Vital Signs Vitals Vital Signs Date Time Temp Pulse Resp B/P Pulse Ox O2 Delivery O2 Flow Rate FiO2 06/20/17 13:55 99.4 99 16 134/86 97 06/17/17 19:30 Room Air Intake and Output 06/19/17 06/19/17 06/20/17 15:00 23:00 07:00 Intake Total 240 ml 1600 ml 1450 ml Output Total 22 ml Balance 240 ml 1600 ml 1428 ml Exam Constitutional: alert, oriented, well developed Neck: non-tender Respiratory: clear to auscultation, normal air movement Cardiovascular: nl pulses Musculoskeletal: nl extremities to inspection Results Result Diagram: 06/19/17 1735 06/19/17 0451 Results 24 hrs Laboratory Tests Test 06/19/17 17:35 Hemoglobin 11.7 L Hematocrit 34.8 L Medications Medications Current Medications Dextrose/Sodium Chloride (D5-1/2ns) 1,000 ml @ 75 mls/hr [id number] IV Last administered on 06/20/17t 08:37; Admin Dose 75 MLS/HR; Start 06/17/17 at 13:00 Ondansetron HCl 4 mg 4 mg Q4H PRN IV NAUSEA AND/OR VOMITING; Start 06/17/17 at 13:00 Acetaminophen (Ofirmev 1000mg/ 100ml Iv) 100 ml @ 400 mls/hr Q6H PRN IVPB FEVER GREATER THAN 100.6; Start 06/17/17 at 13:00 Diltiazem HCl (Cardizem Cd) 180 mg DAILY PO Last administered on 06/20/17 08: 36; Admin Dose 180 MG; Start 06/18/17 at 09:00 Mineral Oil (Mineral Oil) 30 ml Q8 PO Last administered on 06/20/17 13:13; Admin Dose 30 ML; Start 06/17/17 at 22:00 Docusate Sodium (Colace) 100 mg DAILY PO Last administered on 06/20/17 08:37; Admin Dose 100 MG; Start 06/18/17 at 09:00 Fluticasone Propionate (Flonase 0.05% Nasal) 1 spray DAILY NASAL ; Start at 09:00 Pantoprazole (Protonix Tab) 40 mg DAILY@06 PO Last administered on 06/20/17 04 :39; Admin Dose 40 MG; Start 06/18/17 at 06:00 Bisacodyl (Dulcolax) 5 mg DAILY PRN PO CONSTIPATION Last administered on 12:55; Admin Dose 5 MG; Start 06/17/17 at 15:30 Lubiprostone (Amitiza) 24 mcg BID PO Last administered on 06/20/17 08:36; Admin Dose 24 MCG; Start 06/17/17 at 21:00 Hydralazine HCl (Apresoline) 10 mg Q4H PRN IV FOR SBP >160; Start 06/17/17 at 20:30 Ketorolac Tromethamine (Toradol) 15 mg Q6H PRN IV PAIN Last administered on 11:52; Admin Dose 15 MG; Start 06/18/17 at 13:30; Stop 06/21/17 at 13:29 Diphenhydramine HCl (Benadryl) 25 mg HS PO Last administered on 06/19/17 23:05 ; Admin Dose 25 MG; Start 06/20/17 at 21:00 Diazepam (Valium) 5 mg Q12H PRN PO ANXIETY Last administered on 06/20/17 13:13 ; Admin Dose 5 MG; Start 06/20/17 at 13:00 FLORENTIN HENDRICKSON Jun 20, 2017 17:14
--- NOTE | 2017-06-20 17:16 | PDOCDIS ---
Discharge Instructions CONDITION Patient Condition: Stable HOME CARE INSTRUCTIONS: Diet Instructions: ACTIVITY: Activity Restrictions: Slowly Increase Activity Rest between Activity Avoid heavy lifting Do not Drive Do not operate Machinery Do not operate Power Tool Avoid Heavy Housework FOLLOW UP/APPOINTMENTS Follow-up Plan FU with primary MD x 1 week Fu with SURGERY as recommended. Fu with GI as recommended. Call 911 or go to the the nearest hospital is symptoms got worse.Patient verbalized understanding dc instructions. Dw Dr Bah/staff FLORENTIN HENDRICKSON Jun 20, 2017 17:16
[2017-06-20] MEDS ORDERED: LUBI24CA7 PO (17:18)
--- NOTE | 2017-06-20 18:00 | CONS ---
Date/Time of Note Date/Time of Note DATE: 06/20/17 TIME: 17:59 Assessment/Plan Assessment/Plan Additional Assessment/Plan IMPRESSION: 1. Severe constipation, much better. 2. Abdominal pain, reduced to minimal. 3. Bilateral mastectomy with reconstructive surgery and breast implant. 4. Hypertension. 5. Bronchial asthma. 6. History of IBS PLAN: To continue with Amitiza. We will start the patient on PPI for her nausea. 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 Consultation Date/Type/Reason Admit Date/Time Jun 17, 2017 at 12:15 24 HR Interval Summary Constitutional: improved, no complaints Exam/Review of Systems Vital Signs Vitals Vital Signs Date Time Temp Pulse Resp B/P Pulse Ox O2 Delivery O2 Flow Rate FiO2 06/20/17 13:55 99.4 99 16 134/86 97 06/17/17 19:30 Room Air Intake and Output 06/19/17 06/19/17 06/20/17 15:00 23:00 07:00 Intake Total 240 ml 1600 ml 1450 ml Output Total 45 ml 22 ml Balance 240 ml 1555 ml 1428 ml Exam Constitutional: alert, oriented, well developed Psych: nl mood/affect, no complaints Head: atraumatic, normocephalic Eyes: EOMI, PERRL, nl conjunctiva, nl lids, nl sclera ENMT: nl external ears & nose, nl lips & teeth, nl nasal mucosa & septum Neck: non-tender, supple Respiratory: clear to auscultation, normal air movement Cardiovascular: nl pulses, regular rate and rhythm Gastrointestinal: nl liver, spleen, non-tender, soft Musculoskeletal: nl extremities to inspection, nl gait and stance Extremities: normal pulses Neurological: COIL SHAPER II-XII intact, nl mental status, nl speech, nl strength Skin: nl turgor, No rash or lesions Lymph: nl lymph nodes Results Result Diagram: 06/19/17 1735 06/19/17 0451 Medications Medications Current Medications Dextrose/Sodium Chloride (D5-1/2ns) 1,000 ml @ 75 mls/hr [id number] IV Last administered on 06/20/17t 08:37; Admin Dose 75 MLS/HR; Start 06/17/17 at 13:00 Ondansetron HCl 4 mg 4 mg Q4H PRN IV NAUSEA AND/OR VOMITING; Start 06/17/17 at 13:00 Acetaminophen (Ofirmev 1000mg/ 100ml Iv) 100 ml @ 400 mls/hr Q6H PRN IVPB FEVER GREATER THAN 100.6; Start 06/17/17 at 13:00 Diltiazem HCl (Cardizem Cd) 180 mg DAILY PO Last administered on 06/20/17 08: 36; Admin Dose 180 MG; Start 06/18/17 at 09:00 Mineral Oil (Mineral Oil) 30 ml Q8 PO Last administered on 06/20/17 13:13; Admin Dose 30 ML; Start 06/17/17 at 22:00 Docusate Sodium (Colace) 100 mg DAILY PO Last administered on 06/20/17 08:37; Admin Dose 100 MG; Start 06/18/17 at 09:00 Fluticasone Propionate (Flonase 0.05% Nasal) 1 spray DAILY NASAL ; Start at 09:00 Pantoprazole (Protonix Tab) 40 mg DAILY@06 PO Last administered on 06/20/17 04 :39; Admin Dose 40 MG; Start 06/18/17 at 06:00 Bisacodyl (Dulcolax) 5 mg DAILY PRN PO CONSTIPATION Last administered on 12:55; Admin Dose 5 MG; Start 06/17/17 at 15:30 Lubiprostone (Amitiza) 24 mcg BID PO Last administered on 06/20/17 08:36; Admin Dose 24 MCG; Start 06/17/17 at 21:00 Hydralazine HCl (Apresoline) 10 mg Q4H PRN IV FOR SBP >160; Start 06/17/17 at 20:30 Ketorolac Tromethamine (Toradol) 15 mg Q6H PRN IV PAIN Last administered on 11:52; Admin Dose 15 MG; Start 06/18/17 at 13:30; Stop 06/21/17 at 13:29 Diphenhydramine HCl (Benadryl) 25 mg HS PO Last administered on 06/19/17 23:05 ; Admin Dose 25 MG; Start 06/20/17 at 21:00 Diazepam (Valium) 5 mg Q12H PRN PO ANXIETY Last administered on 06/20/17 13:13 ; Admin Dose 5 MG; Start 06/20/17 at 13:00 SKIP ARSHAD MD Jun 20, 2017 17:59
[2017-06-20] MEDS ORDERED: DIPHENHYDRAMINE 25 MG CAP PO SCH (21:00)
== END 2017-06-20 19:09 | disposition home or self-care (01) | DRG 392 ==
LOC: MS1 12:15
PROVIDERS: ADMIT Family Medicine; ATTEND Family Medicine
DX: K59.00 Constipation, unspecified (principal); I10 Essential (primary) hypertension; J45.909 Unspecified asthma, uncomplicated; Z90.13 Acquired absence of bilateral breasts and nipples
CPT/HCPCS: 80048; 85014; 85018; 85025; J1200; J1885; J3480; J7042

== ENCOUNTER → 2017-06-22 | Outpatient (CLI) | payer OTHER ==
[~2017-06-22] VITALS: Ht 157.5 cm; Wt 66.8 kg
[~2017-06-22] MED LIST changes: +LUBI24CA7 PO
[2017-06-22 14:19] VITALS: BP 150/98; PULSE 102; RESP 18; Ht 157.5 cm; Wt 66.8 kg
--- NOTE | 2017-06-22 14:49 | PN ---
Date/Time of Note Date/Time of Note DATE: 06/22/17 TIME: 14:41 Outpatient Progress Note Chief Complaint Epigastric discomfort/bilateral mastectomy/hypertension HPI Epigastric discomfort/patient had recently bilateral breast surgery, patient still has a drainage, patient took [place], patient was slightly constipated, and patient also had slight epigastric discomfort as patient took Motrin also, patient took 600 mg Motrin yesterday, and patient had abdominal discomfort, today patient slightly better, no nausea or vomiting, Bilateral mastectomy/patient has bilateral mastectomy, patient still has slight drainage, patient of breast wound clear, Hypertension/no headache or dizziness, no lightheadedness, Review of Systems Const: No Fever, no chills, no Wt. loss, no Fatigue, normal appetite, no diaphoresis. Eyes: No pain, no discharge, no redness, no visual change, no foreign body. ENT: No pain, no bleeding, no congestion, no sore throat, no dysphagia, no discharge or rhinitis. Lymph: No adenopathy, no tender nodes, no lymphedema. Resp: No SOB, no cough, no sputum, no wheezing, no chest pain. CV: No chest pain, no palpitaions, no DUBON, no PND, no edema. GI: Normal appetite, no pain, no nausea, no vomiting, no diarrhea, no blood, no constipation. : No frequency, no urgency, no dysuria, no hematuria, no flank pain, no discharge, no bleeding. Musc: No back pain, no neck pain, no knee pain, no restricted ROM. Skin: No rash, no skin lesions, no erythema, no laceration, no bruising, no pruritus. Skin over bilateral breast mastectomy area clear, no bleeding discharge or redness, small area of slight discoloration, Neuro: No GARCÍA, no dizziness, no syncope, no seizure, no focal-weakness. Endo: No polyuria, no polydypsia, no dry-skin, no temp-intolerance. Psych: No hallucinations, no depression, no anxiety, no suicidal ideation. Ext: No edema, right cubital area pain, at the site of IV insertion, no ulcer, no weakness. Physical Exam Vital Signs Date Time Temp Pulse Resp B/P Pulse Ox O2 Delivery O2 Flow Rate FiO2 06/22/17 14:19 98.3 102 18 150/98 98 Room Air General Appearance: A 52 year-old female who appears well-developed, well- nourished, in no acute distress. HEENT: Head normocephalic, atraumatic. Pupils equal, round, reactive to light and accommodate. Sclerae are no jaundice. Nasal turbinates pink without erythema or nasal discharge. Mucous membranes pink and moist without lesions. Oropharynx clear without any exudate or discharge. NECK: Supple. Trachea midline, No thyromegaly, No cervical lymphadenopathy, No mass, No carotid bruits, No JVD, Carotid pulses 2+ bilaterally. PULMONARY: Clear to auscultaion bilaterally, No retractions, Chest expansion symmetric bilaterally, no rales, no ronchi, no dulness on percussion. CARDIAC: Normal SI and S2, Regular rate and rythm, no murmur, gallop, or rub. GASTROINTESTINAL: Abdomen is soft, non-tender, Non Rigid, No distention, Positive bowel sounds x4 quadrants, Liver normal. SKIN: Warm, dry, no rash, no bruise, no echmosis. Bilateral breast surgery, surgical site clean, no bleeding or discharge, small area of hyperpigmentation, EXTREMITIES: Bilateral lower extremities no edema, right anterior cubital area discomfort, and IV site no phlebitis, no phlabitus, pulse palpable, no contracture. MUSCULOSKELETAL: Spine Normal, Non-tender, Normal range of motion, No swelling, no deformity, no clubbing, or cyanosis, the patient has no edema to bilateral lower extremities, dorsalis pedis pulses palpable bilaterally. NEUROLOGIC: The patient is awake, alert, oriented, responding to yes/no questions appropriately, moving all extremities, cranial nerve intact, normal strenght, normal power, normal coordination, normal gait. Allergies Coded Allergies: amlodipine (Unverified Allergy, Unknown, 06/13/17) hydrochlorothiazide (Unverified Allergy, Unknown, 06/13/17) metoclopramide (Verified Allergy, Unknown, ELEVATED HR, 06/13/17) prochlorperazine (Verified Allergy, Unknown, ELEVATED HR, 06/13/17) PMH Breast surgery bilateral/hypertension/constipation/abdominal discomfort Social Hx No smoking no drinking, Family Hx noncontributory Assessment/Plan Pressure Epigastric discomfort/bilateral breast surgery/hypertension/right antecubital area discomfort Plan Patient education done about her condition, #2 patient encouraged with the follow up with the general surgery, Patient also encouraged to follow with the primary care physician, Patient has slight epigastric discomfort after taking Motrin, patient advised to take Mylanta which will help for both heartburn and acidity and constipation, Patient to apply hot pack right antecubital area, discussed with the patient to make sure it is not too hot to make skin burn Monitor surgical wound, if any problem to contact us immediately or surgery immediately, Medications Home Meds Active Scripts Lubiprostone* (Amitiza*) 24 Mcg Capsule, 24 MCG PO BID for 30 Days, CAP Prov:FLORENTIN HENDRICKSON 06/20/17 Docusate Sodium* (Colace*) 100 Mg Capsule, 100 MG PO DAILY, #30 CAP Prov:FLORENTIN HENDRICKSON 06/15/17 Reported Medications Fluticasone Propionate* (Fluticasone Propionate* Nasal) 50 Mcg/Garfield - 16 Gm Garfield.susp, 2 SPRAYS NASAL DAILY, #1 BOTTLE TO EACH NOSTRIL 06/13/17 Omeprazole* (Omeprazole*) 20 Mg Capsule.dr, 20 MG PO DAILY, #30 CAP 06/13/17 Cetirizine Hcl* (Cetirizine Hcl*) 10 Mg Tablet, 10 MG PO DAILY, #30 TAB 06/13/17 Albuterol Sulfate* (Ventolin HFA*) 18 Gm Hfa.aer.ad, 2 PUFF INHALATION Q6H, #1 INHALER 06/13/17 Diltiazem Hcl* (Diltiazem XT) 180 Mg Capsule.er, 180 MG PO DAILY, #30 CAP 06/13/17 BARAK VEGA MD Jun 22, 2017 14:49
== END | disposition home or self-care (01) ==
LOC: DCC 14:00
PROVIDERS: ATTEND Internal Medicine
DX: R10.13 Epigastric pain (principal); I10 Essential (primary) hypertension; Z85.3 Personal history of malignant neoplasm of breast; Z90.13 Acquired absence of bilateral breasts and nipples

== ENCOUNTER 2017-12-26 10:45 | Day surgery (SDC) | END 2017-12-26 20:45 | disposition home or self-care (01) ==

== ENCOUNTER 2018-02-06 06:35 | Day surgery (SDC) | END 2018-02-06 15:06 | disposition home or self-care (01) ==

== ENCOUNTER → 2018-02-08 | Emergency (ER) | END | disposition home or self-care (01) ==